=== PATIENT | female | born 1990 | race Caucasian/White ===

== ENCOUNTER 2016-09-16 14:10 | Inpatient (IN) | payer OTHER ==
[~2016-09-16] VITALS: Ht 170.2 cm; Wt 108.9 kg
[2016-09-16 16:11] LABS: Mean Corpuscular Hemoglobin 30.9 pg (27.0-35.0); Mean Corpuscular Volume 91.6 fL (81-100)
[2016-09-16] MEDS ORDERED: Oxytocin 10 Unit/mL Inj IM PRN (17:10)
[2016-09-16] MEDS ORDERED: Carboprost 250 mCg/mL Inj IM PRN (17:10)
[2016-09-16] MEDS ORDERED: Hemorrhage Kit, Post Partum XX ONE (17:10)
[2016-09-16] MEDS ORDERED: Oxytocin 30 Units/500 mL LR 30 UNITS in IV Premix 1 EACH IV PRN (17:10)
[2016-09-16] MEDS ORDERED: Methylergonovine 0.2 mg/mL Inj IM PRN (17:10)
[2016-09-16] MEDS ORDERED: Sodium Chloride LOK Flush 10 mL Syringe IVFLUSH PRN ×2 (17:10→18:05)
[2016-09-16] MEDS ORDERED: diphenhydrAMINE 50 mg Capsule PO PRN (18:05)
--- NOTE | 2016-09-17 10:48 | PROG NOTE ---
[address] [address] PROGRESS NOTE PATIENT: ARTEM PRASAD : 1990 MR#: [id number] ADMIT: 09/16/2016 JOB ID: [id number] DATE: 09/17/2016 SUBJECTIVE: Overnight the patient had Cervidil placed. [place] a little bit of cramping and contractions, but no regular contractions, and no significant cervical change. Per nursing exam this morning, Mica Mujica finds her still fingertip, 40% effaced, -3 station. We discussed a balloon catheter as a reasonable next step. Blood pressures have been somewhat improved overnight with her being on essentially bed rest. REVIEW OF SYSTEMS: No fevers, no leakage of fluid. She does feel movement. PHYSICAL EXAMINATION: Temperature at 8:19 this morning was 36.6 Celsius, blood pressure earlier in the morning 131/74, pulse 68. Gravid woman not in distress. heart tracing shows a baseline in the 150s with accels consistent with a category one tracing. Speculum exam shows a fingertip cervix and some material left over from the Cervidil placement. ASSESSMENT: 1. Gravid at 40 and 6/7 weeks. 2. Low amniotic fluid index prompting induction. 3. Elevated blood pressures at term, borderline, with normal PIH labs. PLAN: Reviewed risks and benefits of a balloon catheter, which I recommended. After cleaning the cervix with Betadine, this was placed with ring forceps using a double balloon catheter, each balloon inflated to 80 mL. The patient had some mild cramping but otherwise tolerated the procedure well. Reviewed this will remain in for up to 12 hours, followed by oxytocin. If balloon comes out and she has not made much cervical change, might consider misoprostol ripening first.
[2016-09-17] MEDS: Lactated Ringer's 1,000 ML IV PRN ×2 (20:42→20:54)
[2016-09-17] MEDS ORDERED: Sodium Chloride LOK Flush 10 mL Syringe IVFLUSH PRN (20:50)
[2016-09-17] MEDS ORDERED: Ondansetron 2 mg/mL 2 mL Inj IVPUSH PRN (20:50)
[2016-09-17] MEDS ORDERED: fentaNYL-PF 50 mCg/mL 2 mL Inj IVPUSH PRN (20:50)
[2016-09-17] MEDS ORDERED: Lactated Ringer's 1,000 ML IV PRN (20:50)
[2016-09-17] MEDS ORDERED: Oxytocin 30 Units/500 mL LR 30 UNITS in IV Premix 1 EACH IV PRN ×2 (20:50→21:45)
[2016-09-17] MEDS ORDERED: Lactated Ringer's 1,000 ML IV ONE (22:20)
--- NOTE | 2016-09-17 22:40 | PROG NOTE ---
[address] [address] PROGRESS NOTE PATIENT: ARTEM PRASAD : 1990 MR#: [id number] ADMIT: 09/16/2016 JOB ID: [id number] PROGRESS NOTE: DATE: 09/17/2016 Patient's double balloon catheter was removed just shy of 12 hours of use. Her cervix has not made significant change, currently at about 1 cm dilation per Nursing, 40% to 50% effaced, soft, -3 station. Fetus is still quite high. heart tracing has shown some periods of tachycardia which seem to improve with fluids. There are a few brief variables with recovery. There continues to be good heart rate variability and numerous accelerations. Patient has no current fever. Blood pressures range from normal to mildly elevated. ASSESSMENT: 1. Gravid at 40 and 6/7th weeks. 2. Induction attempt due to low amniotic fluid index. Unfortunately, Cervidil followed by balloon ripening has not significantly changed her cervix overnight. She is only having occasional contractions. 3. Initial tachycardia which seems to improve with fluids. 4. Brief variable decelerations without recurrent or worsening pattern and continued heart rate tracing variability with accelerations. PLAN: I am uncomfortable starting oxytocin at this juncture given her minimal cervical change as well as the variable decelerations which could worsen with contractions. Plan is for additional hydration, and position changes. If heart tracing returns to baseline of 150s for a period of time, I have discussed with Nursing re-attempt at Cervidil ripening overnight. If she does not meet criteria for Cervidil placement, will continue to observe with possible retrial of cervical ripening followed by oxytocin tomorrow if tracing normalizes. [facility]
[2016-09-18] MEDS ORDERED: Misoprostol 25 mCg/0.25 Tablet VAGINAL ONE (06:45)
[2016-09-18] MEDS ORDERED: Oxytocin 30 Units/500 mL LR 30 UNITS in IV Premix 1 EACH IV PRN (11:00)
--- NOTE | 2016-09-18 17:22 | HP ---
[address] [address] HISTORY AND PHYSICAL PATIENT: ARTEM PRASAD : 1990 MR#: [id number] ADMIT: 09/16/2016 JOB ID: [id number] CHIEF COMPLAINT: Presents for induction due to low amniotic fluid index. HISTORY OF PRESENT ILLNESS: A 26-year-old, 1, para 0, with an EDC of September 11, 2016 presents at my recommendation for post-term induction due to a finding of an HERB of 4.9 on a biophysical profile/HERB check done earlier today. BPP score was 8/8. This dictation was performed on the day she was admitted, however, appears to have been lost. This is a repeat dictation. has been uncomplicated and the screening was for routine reasons. Patient had hoped to avoid induction but is now willing to proceed based on the findings of low amniotic fluid index. She has felt lots of movement. ALLERGIES: None known. CURRENT MEDICATIONS: 1. vitamins 1 tablet daily. 2. Ferrous sulfate 325 mg 1 tablet daily. PAST MEDICAL HISTORY: 1. Excess weight. 2. Quit tobacco use once . SOCIAL HISTORY: She is . Nonsmoker since she became . Does not drink alcohol or use recreational drugs this . PAST GYNECOLOGIC HISTORY: 1. one, para zero. 2. Colposcopy in 2011 or 2012 for abnormal Pap, she cannot recall which. 3. History of chlamydia in 2008, treated. PAST SURGICAL HISTORY: Bunionectomy in 2011 and 2014. LABS: Blood type O positive. Rubella immune. Hepatitis B surface antigen negative. HIV negative. A 29 week glucose tolerance test showed a fasting of 90, at one hour 179, at 2 hour 111. Antibody screen was negative at the beginning of . Hematocrit at 29 weeks was 33.8. Her Pap was normal at the beginning of and A1c at that time was 5.2. She is varicella immune. She declined a quad screen. She is GBS negative screened August 12, 2016. Gonorrhea and Chlamydia cultures were negative in January 2016. A urine culture at that time showed mixed alex at 10-25,000. PHYSICAL EXAMINATION: Initial blood pressure 139/88, temperature 36.6, respirations 16, pulse in the 70s. An alert, gravid woman. By vaginal exam performed by Nursing, she is fingertip, 40% effaced, -3 station. heart tracing shows a baseline in the 150s with numerous accelerations at least 15 x 15, category one tracing. White count 11.6, hematocrit 37.0, platelets 179, BUN 11, creatinine 0.49, uric acid 5.4. AST and ALT are normal at 18 and 13 respectively. Protein to creatinine ratio is normal at 0.13. ASSESSMENT: 1. Gravid at 40 and 5/7 weeks. 2. Low amniotic fluid index of 4.9 on biophysical profile/HERB check performed today for routine post term indications. Her biophysical score was 8/8 and infant was in vertex position. 3. Mild anemia, currently on iron. 4. Elevated blood pressure at term. PIH labs are normal and her numbers are not severe. She denies headache or significant new swelling. PLAN: Reviewed risks and benefits of induction and given her post term status and low HERB, I recommended proceeding with cervical ripening to be eventually followed by oxytocin. Dr. Gill mission manager for HUMAN RESOURCES ADMINISTRATOR was contacted for backup. Consent signed. Risks and benefits reviewed with the patient, her and her mother.
--- NOTE | 2016-09-18 17:56 | PROG NOTE ---
[address] [address] PROGRESS NOTE PATIENT: ARTEM PRASAD : 1990 MR#: [id number] ADMIT: 09/16/2016 JOB ID: [id number] DATE: 09/18/2016 I returned to see the patient about 4 p.m. this afternoon. Overnight there were some periods of tachycardia and so I decided not to start oxytocin. The patient had no fever or other clear reason for this. There was continued good variability. With fluid boluses and time, heart tracing has returned in normal range with lots of accelerations. The patient's cervix this morning was about 3 cm, 60% effaced, -3 station. She received 25 mcg intravaginal misoprostol, and then since 11 a.m. has been on oxytocin currently at 16 milliunits rate. She is just beginning to feel more contractions. Nursing is trying different positions to help accelerate the process. She has had no leakage of fluid. Vital signs: Blood pressures overnight in the [id number] over 70s. A few higher currently when she is up and a bit more anxious. She is having low 140s over 80s to 90s. Vaginal exam performed by myself shows her cervix to be 3.5 stretchable to 4 cm dilated, 80% effaced, -3 station. Membranes palpate still intact. heart tracing remains a category one with lots of accelerations. Prior small variables seemed to have resolved and there is no tachycardia present. ASSESSMENT: 1. Gravid at 41 weeks. 2. Low amniotic fluid index found incidentally at a routine post term biophysical profile. 3. Mild elevated blood pressures without abnormal PIH labs. 4. Slow cervical change with a day and a half of attempt at cervical ripening including Cervidil, balloon catheter, and misoprostol. She appears to be becoming a bit more uncomfortable and may be entering active labor. PLAN: Discussed increasing oxytocin per protocol up to 20 milliunits rate. If she reaches that, I would simply hold it there and see if she continues to progress. If we get into the mid to late evening and she is not having a lot of clinical response, probably the best approach is to turn it off, wait overnight and try again in the morning. Dr. Oneal was updated earlier today on this patient. Questions answered with the patient, her spouse and her mother at bedside.
[2016-09-18] MEDS ORDERED: EPHEDrine Sulfate 50 mg/mL Inj IV PRN (20:05)
[2016-09-18] MEDS ORDERED: fentaNYL-PF 50 mCg/mL 2 mL Inj IVPUSH PRN (20:05)
[2016-09-18] MEDS ORDERED: Ondansetron 2 mg/mL 2 mL Inj IVPUSH PRN (20:05)
[2016-09-18] MEDS ORDERED: Atropine 1 mg/mL Inj IVPUSH PRN (20:05)
[2016-09-18] MEDS ORDERED: fentaNYL 2 mCg/mL-Bupivicaine 0.125% 100 mL Premix EPIDURAL ONE (20:47)
--- NOTE | 2016-09-18 21:31 | PCM.HPANE ---
Patient Data Date of Service: Sep 18, 2016 Surgeon Admitting Provider:Dequan Purdy MD Attending Provider:Dequan Purdy MD Primary Care Physician:Dequan Purdy MD Other Provider:Gilbert Grider Anesthesia Reason for Visit NST NST Ht/WT & BMI Body Mass Index Allergies Coded Allergies: No Known Allergies (Unverified , 09/16/16) Diabetes History Hx Diabetes?: No MRSA MRSA: No Medications Hypertension Medication: No Home Meds Incl Beta Compa: No History History of ENT Problems?: No Hx of Heart Problems?: No Hx of Respiratory Problem?: No Hx Neurologic Problems?: No Hx of GI Problems?: No Hx of Problems?: No HX of Peritoneal Dialysis: No Female Hx: Positive for:: Currently Hx Musculoskeletal Problems?: No Hx of Psycho/Social Problems?: No Hx Surgeries?: No Smoking Status: Current Every Day Smoker Stop/Bang Risk Assessment Category Category 1A: Patient has history of documented sleep apnea, and HAS NOT received any narcotic, sedative or anesthesia administration during this stay. Category 1B: Patient has history of documented sleep apnea, and HAS received any narcotic , sedative or anesthesia administration during this stay Category 2: Patient has SUSPECTED Obstructive Sleep Apnea, and HAS received any narcotic , sedative or anesthesia administration during this stay. Category 3: Patient has SUSPECTED Obstructive Sleep Apnea and HAS NOT received narcotic, sedative or anesthesia administration during this stay. Category 4: Outpatient in Procedural Areas with known sleep apnea or who screen positive for High Risk via the STOP/BANG questionnaire. Exam Exam General Appearance: Oriented X3 HEENT/AIRWAY: MP 2 Lungs: Clear to Auscultation Heart: Exam Unremarkable Meds/Labs/Diagnostics Admission Meds Current Medications Lactated Ringer's (Lr) 1,000 ml @ 0 mls/hr Q0M ONCE IV Last administered on t 12:33; Start 09/17/16 at 22:20; Stop 09/17/16 at 22:21; Status DC Labs Test 09/16/16 15:50 White Blood Count 11.6th/mm3 (3.8-10.1) Red Blood Count 4.05mil/mm3 (3.90-5.20) Hemoglobin 12.5g/dL (12.0-15.6) Hematocrit 37.1% (35.0-46.0) Mean Corpuscular Volume 91.6fL (81-100) Mean Corpuscular Hemoglobin 30.9pg (27.0-35.0) Mean Corpuscular Hemoglobin Concent 33.7% (32.0-37.0) Red Cell Distribution Width 13.0% (12.3-15.4) Platelet Count 179bil/L (150-400) Hematology Comments Urine Random Creatinine 155mg/dL (16-392) Urine Random Total Protein 20mg/dL (0-15) Urine Protein/Creatinine Ratio 0.13 Hold Urine Received (Received) Blood Urea Nitrogen 11mg/dL (6-20) Creatinine 0.49mg/dL (0.57-1.00) Uric Acid 5.4mg/dL (2.6-7.2) Aspartate Amino Transf (AST/SGOT) 18U/L (0-50) Alanine Aminotransferase (ALT/SGPT) 13U/L (0-32) Plan Impression Patient chart reviewed, patient interviewed and anesthestic plan with risks, benefits, and alternatives discussed, and informed consent obtained. ASA Physical Status: ASA2 Mod Systemic Disease Anesthetic Plan: Epidural Bene/Risks/Altern/Consents: Yes HP Complete Prior to Induction: Yes Enoc Taveras MD Sep 18, 2016 21:31
[2016-09-19] MEDS: Lactated Ringer's 1,000 ML IV PRN (00:26)
[2016-09-19] MEDS ORDERED: Sodium Chloride LOK Flush 10 mL Syringe IVFLUSH SCH (00:30)
[2016-09-19] MEDS ORDERED: Lactated Ringer's 1,000 ML IV SCH (02:13)
[2016-09-19] MEDS ORDERED: Oxytocin 30 Units/500 mL LR 30 UNITS in IV Premix 1 EACH IV PRN (02:15)
[2016-09-19] MEDS ORDERED: Hemorrhage Kit, Post Partum XX ONE (02:15)
[2016-09-19] MEDS ORDERED: Carboprost 250 mCg/mL Inj IM PRN (02:15)
[2016-09-19] MEDS ORDERED: HYDROcodone-APAP 5-325 mg Tablet PO PRN (02:15)
[2016-09-19] MEDS ORDERED: Methylergonovine 0.2 mg/mL Inj IM PRN (02:15)
[2016-09-19] MEDS ORDERED: Oxytocin 10 Unit/mL Inj IM PRN (02:15)
--- NOTE | 2016-09-19 02:42 | OP ---
[address] [address] OPERATIVE REPORT PATIENT: ARTEM PRASAD : 1990 MR#: [id number] ADMIT: 09/16/2016 JOB ID: [id number] DATE OF DELIVERY: 09/19/2016 DELIVERY NOTE: Delivery position: OA rotating to [place]. Apgars: 8 and 9. Delivery weight: 3852 grams (8 pounds, 8 ounces), viable female. Umbilical cord: Three-vessel cord, normal length and appearance. Placenta: Central cord insertion normal appearance. No evidence of retained fragments. EBL: 200 cc. Lacerations: Second-degree perineal. Complications: None. The patient was found to be completely dilated by nursing but did not have a strong urge to push due to having an effective epidural. She was allowed to labor down for approximately two hours, then began pushing. She pushed effectively. When I arrived, the head was at +3 station. She pushed a few times, delivering the head without difficulty. Body and shoulders delivered soon there afterward with no identified shoulder dystocia or nuchal cord. was immediately vigorous and crying, was handed up to patient and nursing for additional stimulation and drying. Cord was clamped after two minute delay and cord blood collected and sent. Placenta delivered spontaneously with gentle traction on the cord. Fundus was immediately firm after delivery and IV oxytocin was instituted. Perineum was inspected and showed a second-degree perineal tear, shallow, repaired with 2-0 Vicryl in standard fashion. Anesthesia was epidural. After delivery, rectal exam was performed which showed intact sphincter and no rectovaginal fistula identified. Sponge and needle counts are correct. The patient is in stable condition . She plans to breast-feed. She is blood type O-positive. [facility]
[2016-09-19] MEDS: Witch Hazel-Glycerin Pads TOPICAL PRN (03:11)
[2016-09-19] MEDS: LANOlin HPA 7 Gm Ointment TOPICAL PRN (03:11)
[2016-09-19] MEDS: Benzocaine (Dermoplast) 20% 60 Gm Spray TOPICAL PRN (03:11)
[2016-09-19] MEDS: Ascorbic Acid 500 mg Tablet PO SCH ×2 (10:31→17:43)
[2016-09-19] MEDS: oxyCODONE-Acetamin 5-325 mg Tablet PO PRN (13:40)
[2016-09-20] MEDS: oxyCODONE-Acetamin 5-325 mg Tablet PO PRN (06:43)
[2016-09-20 06:56] LABS: Mean Corpuscular Volume 94.2 fL (81-100)
[2016-09-20] MEDS: Ascorbic Acid 500 mg Tablet PO SCH (08:52)
--- NOTE | 2016-09-20 11:37 | PCM.DIOB ---
Obstetrical Disch Instruction Date of Service: Sep 20, 2016 Dates of Hospitalization Date of Hospital Admission Sep 16, 2016 at 15:15 Providers Admitting Physician: Dequan Purdy MD Primary Care Physician: Dequan Purdy MD Attending Physician: Dequan Purdy MD Discharge Diagnosis Problems: (1) Encounter for full-term uncomplicated delivery Status: Acute ICD Code: O80 (2) Low amniotic fluid alpha fetoprotein (AFP) Status: Acute ICD Code: O28.8 Diet Discharge Diet: No restrictions Activity Discharge Activity-General: Pelvic Rest for 6 weeks, Balance rest and activity Dressing and Incisional Care Hygiene: May shower Follow Up Plan Follow-up Provider (F9): Dequan Purdy MD Follow-up appointment: Weeks (6) Call your provider for: Fever or Chills, Shortness of breath, Heavy vaginal bleeding, Excessive constipation, Red painful breasts Dequan Purdy MD Sep 20, 2016 11:37
[2016-09-20] MEDS ORDERED: DOCU-41 PO (11:40)
[2016-09-20] MEDS ORDERED: FERR-74 PO (11:40)
[2016-09-20] MEDS ORDERED: PNV1TABL81 PO (11:40)
[2016-09-20] MEDS ORDERED: OXYC1TAB24 PO (11:40)
[2016-09-20] MEDS ORDERED: IBUP-1827 PO (11:40)
--- NOTE | 2016-09-20 11:58 | DIS ---
[address] [address] DISCHARGE SUMMARY PATIENT: ARTEM PRASAD : 1990 MR#: [id number] ADMIT: 09/16/2016 JOB ID: [id number] DIS: 09/20/2016 DISCHARGE DIAGNOSES: 1. Vaginal delivery at 41 weeks gestation. 2. Low amniotic fluid index, prompting a post-term induction. 3. Elevated blood pressures at term with normal PIH laboratories and resolution after delivery. 4. Second-degree perineal tear. 5. Mild anemia related to acute blood loss from delivery. 6. Mild thrombocytopenia, asymptomatic. 7. Excess weight. 8. Prior tobacco use, quit once . 9. History of abnormal Pap in 2011 or 2012, she cannot recall which. ALLERGIES: She reports intolerance to HYDROCODONE. DISCHARGE MEDICATIONS: 1. vitamins, 1 tablet daily. 2. Ferrous sulfate 325 mg daily. 3. Docusate sodium 100 mg p.o. b.i.d. p.r.n. constipation. 4. Oxycodone/acetaminophen, 1/2 to 2 tablets p.o. q.4 h. p.r.n. pain. 5. vitamins, 1 tablet daily. DISCHARGE INSTRUCTIONS: 1. Pelvic rest for six weeks. 2. Activity as tolerated. 3. Breast feed as tolerated. 4. Diet ad lulu. 5. Follow up with Dr. Purdy in six weeks, sooner for any issues, excess bleeding, breast pain, etc. HOSPITAL COURSE: The patient is a now 26-year-old, 1 para 1, with an EDC of September 11. She had a routine post term biophysical profile and amniotic fluid index ultrasound on September 16. This showed a low HERB of 4.9, with a biophysical score of 8/8. On my recommendation, she was admitted and Cervidil placed overnight for cervical ripening. This did not change her cervix very much. She then received a double balloon catheter intracervically for approximately 12 hours. Unfortunately, this also did not result in significant cervical change. There was some tachycardia and a decision was made not to start oxytocin at this point. The patient was rested overnight and then given one dose of misoprostol, followed by IV oxytocin after discussion with MANAGER ASSET MANAGEMENT on-call. This successfully triggered labor for the patient, and she went on to have an uncomplicated delivery of a 3852 g viable female, with Apgars of 8 and 9. She sustained a small second-degree perineal laceration. Her EBL was 200 cc initially. , her blood pressures have normalized to the 130s/80s. She is afebrile and up caring for her infant. Her hematocrit was 29.5, down from 37.1. I recommended she continue iron once daily for six weeks. Her platelets dropped slightly from 179,000 to 129,000, but she is asymptomatic, and no further intervention is planned unless she has increased bleeding. The patient will follow up in six weeks in my office, sooner if issues. She has excellent social support.
[2016-09-20 12:23] VITALS: BP 133/84; PULSE 77; RESP 18
[2016-09-20] MEDS: Witch Hazel-Glycerin Pads TOPICAL PRN (12:55)
[2016-09-20] MEDS: Benzocaine (Dermoplast) 20% 60 Gm Spray TOPICAL PRN (12:56)
[2016-09-20] MEDS: LANOlin HPA 7 Gm Ointment TOPICAL PRN (12:56)
[2016-09-20] MEDS ORDERED: Bupivacaine-MPF 0.25% 30 mL Inj ONE (13:27)
== END 2016-09-20 13:28 | disposition home or self-care (01) | DRG 775 ==
LOC: FBCO 14:10 → FBC 15:15
PROVIDERS: ADMIT Family Medicine; ATTEND Family Medicine
PROC: 3E0P7GC Introduction of Other Therapeutic Substance into Female Reproductive, Via Natural or Artificial Opening (ICD-10-PCS; 2016-09-17)
PROC: 10E0XZZ Delivery of Products of Conception, External Approach (ICD-10-PCS; principal; 2016-09-19)
PROC: 0KQM0ZZ Repair Perineum Muscle, Open Approach (ICD-10-PCS; 2016-09-19)
DX: O70.1 Second degree perineal laceration during delivery (principal); O28.8 Other abnormal findings on antenatal screening of mother; O26.03 Excessive weight gain in pregnancy, third trimester; Z37.0 Single live birth; Z3A.40 40 weeks gestation of pregnancy; Z87.891 Personal history of nicotine dependence